=== PATIENT | female | born 1960 | race Caucasian/White ===

== ENCOUNTER 2017-01-03 12:37 | Emergency (ER) | payer OTHER ==
[2017-01-03 14:09] VITALS: BP 125/80
== END 2017-01-03 14:09 | disposition home or self-care (01) ==
LOC: ED 12:37
DX: K08.89 Other specified disorders of teeth and supporting structures (principal); E11.9 Type 2 diabetes mellitus without complications; I10 Essential (primary) hypertension; Z79.84 Long term (current) use of oral hypoglycemic drugs
CPT/HCPCS: J0295; J3010